=== PATIENT | male | born 1945 | race Caucasian/White ===

== ENCOUNTER → 2016-09-11 | Outpatient (REF) ==
[2016-09-11 13:39] LABS: THYROID STIMULATING HORMONE 3.28 uIU/mL (0.465-4.680)
[2016-09-11 14:13] LABS: PSA-TOTAL 2.79 ng/mL (0-4)
== END ==
LOC: ZLAB.WCH 12:47
PROVIDERS: Internal Medicine
DX: Z01.89 Encounter for other specified special examinations (principal)
CPT/HCPCS: G0103

== ENCOUNTER → 2017-01-03 | Outpatient (CLI) | payer MEDICARE, BC | LOC: COL.VAS 13:51 | DX: I65.22 Occlusion and stenosis of left carotid artery (principal); I25.10 Atherosclerotic heart disease of native coronary artery without angina pectoris ==

== ENCOUNTER → 2017-09-23 | Outpatient (REF) ==
[2017-09-23 10:57] LABS: PSA-TOTAL 2.23 ng/mL (0-4)
== END ==
LOC: ZLAB.WCH 08:32
PROVIDERS: Internal Medicine
DX: Z01.89 Encounter for other specified special examinations (principal)
CPT/HCPCS: G0103

== ENCOUNTER → 2018-08-27 | Outpatient (CLI) | payer MEDICARE, BC | LOC: COL.VAS 10:58 | DX: I65.23 Occlusion and stenosis of bilateral carotid arteries (principal) ==

== ENCOUNTER → 2018-09-25 | Outpatient (CLI) | payer MEDICARE, BC | LOC: COL.RAD 09:20 | DX: Z13.6 Encounter for screening for cardiovascular disorders (principal) ==

== ENCOUNTER 2021-11-28 08:56 | Outpatient (CLI) | payer MEDICARE, BC ==
[~2021-11-28] VITALS: Ht 172.7 cm; Wt 77.0 kg
[2021-11-28 10:03] VITALS: BP 128/78; PULSE 62; TEMP 97
[2021-11-28] MEDS ORDERED: FOLBEE PLUS1 TAB PO (10:06)
[2021-11-28] MEDS ORDERED: ASPIRIN 81M81 MG/TA2 PO (10:08)
[2021-11-28] MEDS ORDERED: MESTINON 6060 MG/TAB PO (10:09)
[2021-11-28] MEDS ORDERED: PARCOPA 25/101 UDTAB NG (10:10)
[2021-11-28] MEDS ORDERED: CRESTOR20 MG PO (10:10)
[2021-11-28] MEDS ORDERED: HCTZ12.5TAB PO (10:10)
[2021-11-28] MEDS ORDERED: NORVASC 5MG5 MG/TAB PO (10:11)
--- NOTE | 2021-11-28 11:09 | NUR ---
Pt's VS reamined stable. IV dc'd. Pt denies dizziness, SOB, CP, or rash. Pt taken out for discharge.
== END 2021-11-28 13:09 | disposition home or self-care (01) ==
LOC: EUO 08:56 → EDSTATUS 09:00 → EUO 13:09
DX: U07.1 COVID-19 (principal); N18.9 Chronic kidney disease, unspecified; D84.9 Immunodeficiency, unspecified
CPT/HCPCS: M0222; Q0222

== ENCOUNTER → 2023-10-08 | Outpatient (CLI) | payer MEDICARE, BC ==
[~2023-10-08] MED LIST: ASPIRIN 81M81 MG/TA2 PO; CRESTOR20 MG PO; FOLBEE PLUS1 TAB PO; HCTZ12.5TAB PO; MESTINON 6060 MG/TAB PO; NORVASC 5MG5 MG/TAB PO; PARCOPA 25/101 UDTAB NG
== END ==
LOC: COL.RAD 09:20
DX: I65.23 Occlusion and stenosis of bilateral carotid arteries (principal); I10 Essential (primary) hypertension